=== PATIENT | female | born 1940 | race Caucasian/White ===

== ENCOUNTER 2017-03-19 07:47 | Outpatient (CLI) | payer MEDICARE ==
[2017-03-19] MEDS ORDERED: ISOVUE-370 76%-LOCM 1 ML ONE (10:02)
--- NOTE | 2017-03-19 11:30 | CT ---
CTA OF THE ABDOMEN AND PELVIS WITH BILATERAL LOWER EXTREMITY RUNOFF: INDICATION: A 76-year-old female with a history of abdominal aortic aneurysm and iodine allergy. The patient rec eived premedication for this evaluation. The patient also has a history of hysterectomy and open-hea rt surgery. COMPARISON: None. TECHNIQUE: Multiple CTA images were obtained of the abdomen and pelvis utilizing IV contrast and 3D reformatted imaging. FINDINGS: ABDOMEN: Visualized aspects of the liver, spleen, pancreas, and right adrenal gland appear within normal limit s. There is a 1 cm nodule within the left adrenal body that cannot be further characterized on this current study. There is a tiny 1-2 mm nonobstructing calculus within the left mid kidney. There is a 6 mm nonobstru cting calculus within the inferior pole of the left kidney. There are small hypodensities within bot h kidneys that are too small to characterize but statistically are likely reflective of cysts. No pathologically enlarged lymph nodes are evident. No free fluid is evident. PELVIS: There is a mild amount of retained stool within the colon. The uterus is surgically absent. Both ov willard are present. There is a 3.6 cm fluid density mass lesion involving the left adnexa on image 86 of series 3. The bladder, rectum, and perirectal soft tissues are unremarkable. There are a few scattered diverti cular involving the sigmoid colon. Small bowel is of normal caliber. No free fluid is evident. OSSEOUS STRUCTURES: There is prominent levoscoliosis of the lumbar spine. There is a dorsal column stimulator overlying the right posterior iliac crest with stimulator leads projecting beyond the field of view for the cur rent study. There is multilevel Modic end plate degenerative changes of the lumbar spine. Scoliosis lends itself to a high degree of tortuosity of the abdominal aorta. VASCULATURE: The suprarenal abdominal aorta measures 2.3 cm in its greatest AP dimension. The abdominal aorta at the level of the renal artery measures 2.2 cm. 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 There is some ectasia of the infrarenal abd ominal aorta measuring up to 2.1 cm. No sharif aneurysmal dilatation is noted. The right common maliha c artery is mildly aneurysmal measuring 1.6 cm. The left common iliac artery measures 1.3 cm. There is moderate vascular calcification involving the abdominal aorta and pelvic vasculature. The celiac and SMA are widely patent. There are single renal arteries bilaterally that are widely pa tent. There is some mild atherosclerotic narrowing involving the origin of the JM. The right external iliac artery is widely patent. The right common femoral artery is widely patent. The common femoral bifurcation is widely patent. The profunda femoral artery is widely patent. The superficial femoral artery demonstrates some mild atherosclerotic irregularity particularly distally near the adductor hiatus without hemodynamically significant stenosis. The right popliteal artery i s widely patent. The trifurcation is patent. There is 3-vessel runoff to the level of the ankle. The left external iliac artery is widely patent. The left common femoral artery is widely patent. T he left common femoral bifurcation is patent. The profunda femoral artery is patent. There is some mild atherosclerotic irregularity involving the left superficial femoral artery. There is a fluid de nsity mass seen within the subcutaneous tissues of the left thigh medially measuring 3.3 cm adjacent to an area of scarring. This may be related to a prior region of saphenous vein graft due to the pat ient's heart surgery. This likely reflects a small lymphocele. The left popliteal artery is widely patent. The trifurcation is widely patent. There is 3-vessel runoff to the level of the ankle. IMPRESSION: 1. Mild ectasia of the suprarenal and infrarenal abdominal aorta without evidence of sharif aneurysm. There is moderate to severe atherosclerotic disease of the abdominopelvic vasculature. 2. There is mild narrowing involving the origin of the inferior mesenteric artery. 3. There is mild atherosclerotic irregularity involving the distal right superficial femoral artery without hemodynamically significant stenosis. Mild irregularity is also present involving the left s uperficial femoral artery without hemodynamically significant stenosis. 4. The celiac, SMA, and renal arteries are widely patent. 5. A 3.6 cm fluid density mass lesion involving the left adnexa may reflect a serous inclusion cyst in a patient of this age. Further evaluation with a pelvic ultrasound is recommended for additional characterization. 6. Probable lymphocele within the subcutaneous tissues near the saphenous vein harvest site of the l eft thigh. 7. Postsurgical change of a hysterectomy. 8. Bilateral renal cysts and left-sided nephrolithiasis. 9. Severe levoscoliosis of the lumbar spine with severe multilevel spondylosis. POS: CALVIN
== END 2017-03-19 07:48 | disposition home or self-care (01) ==
LOC: CT 07:47
PROVIDERS: ATTEND Family Medicine
DX: I71.4 Abdominal aortic aneurysm, without rupture (principal); I77.811 Abdominal aortic ectasia; Z90.710 Acquired absence of both cervix and uterus; M41.86 Other forms of scoliosis, lumbar region
CPT/HCPCS: 75635

== ENCOUNTER 2018-02-09 07:31 | Outpatient (CLI) | payer MEDICARE ==
[2018-02-09 07:56] LABS: ALT (SGPT) 33 U/L (8-55); AST (SGOT) 35 U/L (5-34); Albumin 3.9 g/dL (3.4-4.8); Alkaline Phosphatase 80 U/L (40-150); Anion Gap 12 mmol/L (10-20); BUN (Urea Nitrogen) 16 mg/dL (9.8-20.1); Bilirubin, Total 0.6 mg/dL (0.2-1.2); Calc. Creatinine Clearance 0 mL/min (70-130); Calcium 9.7 mg/dL (7.8-10.44); Carbon Dioxide 26 mmol/L (23-31); Cardiac Risk 3.1 (Less than 4.5); Chloride 105 mmol/L (98-107); Cholesterol 114 mg/dl (< 200 Desired); Estimated GFR-MDRD 67; Glucose 111 mg/dL (83-110); HDL Cholesterol 37 mg/dL (>60 Neg Risk); LDL Cholesterol, Calculated 44 mg/dL; Potassium 4.6 mmol/L (3.5-5.1); Protein, Total 6.9 g/dL (6.0-8.3); Sodium 138 mmol/L (136-145); Triglycerides 167 mg/dL (Less than 150)
== END 2018-02-09 07:32 | disposition home or self-care (01) ==
LOC: CP 07:31
PROVIDERS: ATTEND Family Medicine
DX: J98.01 Acute bronchospasm (principal)
CPT/HCPCS: 36415; 80053; 80061; 94060; 94727; 94729

== ENCOUNTER 2019-11-09 21:03 | Inpatient (IN) | payer MEDICARE, OTHER ==
--- NOTE | 2019-11-09 22:40 | ULT ---
Exam:Leftlower extremity venous ultrasound with Doppler HISTORY: Leftlower extremity swelling COMPARISON: None TECHNIQUE: Grayscale, color flow, Doppler imaging and spectral wave muscle performed left lower extre mity venous system FINDINGS: There is compressibility, presence of flow and augmentation in the common femoral vein, femoral vein and popliteal vein. There is flow in the posterior tibial vein. There is flow in the greater saphenous vein and profunda femoral vein Incidentals: Enlarged left inguinal lymph node with preserved fatty hilum measuring 2 cm in maximum d imension The medial thigh, there is a well-circumscribed anechoic focus with through transmission measuring 2. 6 x 2.4 x 3.4 cm. A soft tissue cyst is suspected. Wall is slightly thickened. IMPRESSION: 1. No thrombus in the left lower extremity deep venous system. 2. Incidentals as above.
[2019-11-10] MEDS ORDERED: Ondansetron ODT 4 MG TAB SL PRN (01:05)
[2019-11-10] MEDS ORDERED: Ondansetron PF 4 MG/2 ML Vial IVP PRN ×2 (01:05→02:15)
[2019-11-10] MEDS ORDERED: Acetaminophen 325 MG TAB PO PRN (01:05)
[2019-11-10 01:28] VITALS: BMI 31.8
[2019-11-10] MEDS ORDERED: Guaifenesin DM 100-10/5 ML UDCUP PO PRN (02:15)
[2019-11-10] MEDS ORDERED: cloNIDine 0.1 MG TAB PO PRN (02:15)
[2019-11-10] MEDS ORDERED: Promethazine HCl 12.5 MG in Sodium Chloride 0.9% 50 ML IVPB PRN (02:15)
[2019-11-10] MEDS ORDERED: Morphine 2 MG/ML VIAL SLOW IVP PRN (02:15)
[2019-11-10] MEDS ORDERED: Labetalol HCl 100 MG/20 ML VIAL SLOW IVP PRN (02:15)
[2019-11-10] MEDS ORDERED: HYDROcodone/Acetaminophen 5/325 mg Tablet PO PRN (02:15)
[2019-11-10] MEDS ORDERED: hydrALAZINE 20 MG/ML VIAL SLOW IVP PRN (02:15)
[2019-11-10] MEDS ORDERED: Bisacodyl 10 MG SUPP PR PRN (02:16)
--- NOTE | 2019-11-10 03:31 | PDOC.HHP ---
Hospitalist HPI - History of Present Illness L thigh pain, redness, swelling History of Present Illness: Patient is a 79 year old female with PMH CAD, macular degeneration, OAB, HLD, chronic back pain, scoliosis, HTN who presents as [place] ED transfer for L thigh erythema and swelling. started several days ago, painful starting earlier today. in L thigh extending down to leg and ankle, no tender joints, no groin extension. no previous episodes, no portal of entry, has chronic cough and abnormal PFTs and CXR concerning for COPD. smokes 1 ppd. DV duplex negative for clots. In [place], UA w/ trace LE 0-3 WBC, CBC w/ WBC 14. CXR w/ hyperinflation and COPD. Patient transferred for cellulitis treatment. Hospitalist ROS - Review of Systems Constitutional: denies: fever, chills, sweats, weakness, malaise, other Eyes: denies: pain, vision change, conjunctivae inflammation, eyelid inflammation, redness, other ENT: denies: ear pain, ear discharge, nose pain, nose discharge, nose congestion , mouth pain, mouth swelling, throat pain, throat swelling, other Respiratory: denies: cough, dry, shortness of breath, hemoptysis, SOB with excertion, pleuritic pain, sputum, wheezing, other Cardiovascular: denies: chest pain, palpitations, orthopnea, paroxysmal noc. dyspnea, edema, light headedness, other Gastrointestinal: denies: nausea, vomiting, abdominal pain, diarrhea, constipation, melena, hematochezia, other Genitourinary: denies: dysuria, frequency, incontinence, hematuria, retention, other Musculoskeletal: denies: neck pain, shoulder pain, arm pain, back pain, hand pain, leg pain, foot pain, other Skin: reports: rash, lesions, other (per HPI) Neurological: denies: weakness, numbness, incoordination, change in speech, confusion, seizures, other All other systems reviewed; all pertinent +/- noted in HPI/Subj - Medication Medications: reviewed, see ED records and MAR/home med list in EMR Hospitalist History - Past Medical History Other Medical History: CAD, macular degeneration, OAB, HLD, chronic back pain, scoliosis, HTN - Past Surgical History Other Surgical History: catarracts hysterectomy spinal cord stimulator CABG 3v - Family History Family History: reports: no pertinent history - Social History Smoking Status: Current every day smoker (1 ppd) Alcohol: reports: None Drugs: reports: none - Exam General Appearance: NAD, awake alert Eye: PERRL, anicteric sclera ENT: normocephalic atraumatic, no oropharyngeal lesions, moist mucosa Neck: supple, symmetric, no JVD, no thyromegaly, no lymphadenopathy, no carotid bruit Heart: RRR, no murmur, no gallops, no rubs, normal peripheral pulses Respiratory: CTAB, no wheezes, no rales, no ronchi, normal chest expansion, no tachypnea, normal percussion Gastrointestinal: soft, non-tender, non-distended, normal bowel sounds, no palpable masses, no hepatomegaly, no splenomegaly, no bruit Extremities: no cyanosis, no clubbing, no edema Skin: normal turgor, no lesions Skin - other findings: rash on inner thigh LLE, erythema/edema no induration or firmness Neurological: cranial nerve grossly intact, normal sensation to touch, no weakness, no focal deficits, no new deficit Musculoskeletal: normal tone, normal strength, no muscle wasting Psychiatric: normal affect, normal behavior, A&O x 3 Hospitalist Results - Labs Lab results: outside records reviewed, see HPI for pertinent positives Hospitalist H&P A/P - Plan Plan: Patient is a 79 year old female with PMH CAD, macular degeneration, OAB, HLD, chronic back pain, scoliosis, HTN who presents as [place] ED transfer for L thigh erythema and swelling. # LLE cellulitis - covid screen ordered, follow up results - blood cultures drawn [place], follow up results there - line around thich rash demarkated, no groin or pelvic extension. no obvious portal of entry - continue vancomycin - US extremity without DVT # history of CAD/CABG - resume home cardiac meds and ASA # HLD - resumes home meds # HTN - PRN medications ordered, resume home meds # chronic back pain - noted, pain meds per normal comfort measures # obstructive lung disease - previous abnormal PFTs, PRN duonebs, no active wheezing # tobacco abuse - nicotine patch DVT ppx/ GI ppx full code
[2019-11-10] MEDS ORDERED: Nicotine 14 MG PATCH TD SCH (04:00)
[2019-11-10 05:29] LABS: #Basophils 0.1 thou/uL (0.0-0.2); #Eosinphils 0.1 thou/uL (0.0-0.7); #Lymphocytes 1.8 thou/uL (1.20-3.40); #Monocytes 1.2 thou/uL (0.11-0.59); #Neutrophils 10.5 thou/uL (1.40-6.50); %Basophils 0.4 % (0.0-1.0); %Eosinophils 0.7 % (0.0-10.0); %Lymphocytes 13.1 % (21.0-51.0); %Neutrophils 76.8 % (42.0-75.0); Hemoglobin 14.1 g/dL (12.0-16.0); Mean Corpuscular HGB CONC 31.8 g/dL (32.0-36.0); Mean Corpuscular Hemoglobin 30.2 pg (27.0-31.0); Mean Platelet Volume 8.2 fL (7.4-10.4); Platelet Count 166 thou/uL (130-400); RBC Distribution Width 11.7 % (11.5-14.5); Red Blood Cell (RBC) Count 4.68 mill/uL (4.20-5.40); White Blood Cell (WBC) Count 13.6 thou/uL (4.8-10.8)
[2019-11-10 05:57] LABS: Anion Gap 12 mmol/L (10-20); BUN (Urea Nitrogen) 12 mg/dL (9.8-20.1); Calc. Creatinine Clearance 85 mL/min (70-130); Calcium 8.4 mg/dL (7.8-10.44); Carbon Dioxide 17 mmol/L (23-31); Chloride 107 mmol/L (98-107); Estimated GFR-MDRD 82; Glucose 97 mg/dL (83-110); Potassium 4.4 mmol/L (3.5-5.1); Sodium 132 mmol/L (136-145)
[2019-11-10] MEDS: Aspirin 325 mg Enteric Coated Tablet PO SCH (08:46)
[2019-11-10] MEDS: Vancomycin HCl 1.25 GM in Sodium Chloride 0.9% 250 ML 250 ML IVPB SCH (08:46)
[2019-11-10] MEDS: Famotidine 20 MG TAB PO SCH (08:46)
[2019-11-10] MEDS: Atorvastatin Calcium 20 MG TAB PO SCH (08:47)
[2019-11-10] MEDS: Enoxaparin Sodium 40 MG/0.4 ML SYRINGE SC SCH (08:48)
[2019-11-10] MEDS: Nicotine 14 MG PATCH TD SCH (08:49)
[2019-11-10] MEDS: Polyethylene Glycol 3350 17 GM Packet PO SCH (08:49)
[2019-11-10] MEDS: Cefepime 2 GM in Sodium Chloride 0.9% 100 ML IVPB SCH ×2 (08:50→20:42)
[2019-11-10] MEDS ORDERED: Vancomycin 1 GM in Premix Bag 1 BAG IVPB SCH (09:00)
[2019-11-10] MEDS ORDERED: Cefepime 2 GM in Sodium Chloride 0.9% 100 ML IVPB SCH (10:00)
[2019-11-10 14:14] LABS: SARS-CoV-2 MS2 Positive; SARS-CoV-2 N Gene Negative; SARS-CoV-2 S Gene Negative; SARS-CoV-2 by NAA Not Detected (NotDetected); SARS-CoV-2 orf1ab Negative
--- NOTE | 2019-11-10 15:39 | PDOC.EVN ---
Event Note - Event Note Event Note: Case was reviewed. Patient was seen and examined. She presented with pain in her left thigh. She has macular degeneration and cannot see the area well. Her daughter noticed it to be significantly red. She reports it is feeling slightly better already. She did have a vein harvesting in the left thigh for her bypass surgery. There is an area of erythema surrounding each of the 3 scars on her left thigh. The most proximal one is the most severe. There is an area of about 4 to 5 cm of induration and significant tenderness to palpation concerning for possible abscess. Will obtain an ultrasound and continue IV antibiotics.
[2019-11-11] MEDS: Acetaminophen 325 MG TAB PO PRN ×2 (00:12→20:31)
[2019-11-11 06:18] LABS: #Eosinphils 0.3 thou/uL (0.0-0.7); #Lymphocytes 2.2 thou/uL (1.20-3.40); #Neutrophils 7.1 thou/uL (1.40-6.50); %Basophils 0.4 % (0.0-1.0); %Eosinophils 2.8 % (0.0-10.0); %Lymphocytes 20.4 % (21.0-51.0); %Monocytes 9.3 % (0.0-10.0); %Neutrophils 67.2 % (42.0-75.0); Hemoglobin 13.8 g/dL (12.0-16.0); Mean Corpuscular HGB CONC 33.5 g/dL (32.0-36.0); Mean Corpuscular Hemoglobin 31.6 pg (27.0-31.0); Mean Corpuscular Volume 94.6 fL (78.0-98.0); Mean Platelet Volume 8.5 fL (7.4-10.4); Platelet Count 164 thou/uL (130-400); RBC Distribution Width 11.6 % (11.5-14.5); Red Blood Cell (RBC) Count 4.36 mill/uL (4.20-5.40); White Blood Cell (WBC) Count 10.6 thou/uL (4.8-10.8)
[2019-11-11 06:39] LABS: Anion Gap 12 mmol/L (10-20); BUN (Urea Nitrogen) 10 mg/dL (9.8-20.1); Calc. Creatinine Clearance 84 mL/min (70-130); Calcium 8.6 mg/dL (7.8-10.44); Carbon Dioxide 23 mmol/L (23-31); Chloride 105 mmol/L (98-107); Estimated GFR-MDRD 81; Glucose 105 mg/dL (83-110); Potassium 3.8 mmol/L (3.5-5.1); Sodium 136 mmol/L (136-145)
[2019-11-11] MEDS: Cefepime 2 GM in Sodium Chloride 0.9% 100 ML IVPB SCH ×2 (08:45→20:36)
[2019-11-11] MEDS: Polyethylene Glycol 3350 17 GM Packet PO SCH (08:48)
[2019-11-11] MEDS: Nicotine 14 MG PATCH TD SCH (08:48)
[2019-11-11] MEDS: Atorvastatin Calcium 20 MG TAB PO SCH (08:49)
[2019-11-11] MEDS: Aspirin 325 mg Enteric Coated Tablet PO SCH (08:49)
[2019-11-11] MEDS: Famotidine 20 MG TAB PO SCH (08:50)
[2019-11-11] MEDS: Vancomycin HCl 1.25 GM in Sodium Chloride 0.9% 250 ML 250 ML IVPB SCH (11:33)
--- NOTE | 2019-11-11 14:32 | ULT ---
Sonographic guided left thigh abscess aspiration HISTORY: Left leg abscess. FINDINGS: After explaining the procedure and answering all questions, the skin over the area of infla mmation at the medial aspect of the left thigh was prepped and draped in usual sterile fashion. Sterile technique, buffered local anesthesia, sonographic guidance, and a lateral approach were used to carefully advance a 18-gauge spinal needle into the center of the abscess. A small amount of thick yellow liquid was initially aspirated. The vigorous movement of the needle was used to aspirate a total of 4 cc thick yellow liquid. No more additional fluid was able to be aspirated. Significant pastelike material remained within the abscess cavity. Volume was decreased by approximat gabriela 50%. Patient tolerated well and was returned in unchanged condition. IMPRESSION : Technically successful CT-guided aspiration left thigh abscess. Pathology is pending.
[2019-11-11] MEDS: Enoxaparin Sodium 40 MG/0.4 ML SYRINGE SC SCH ×2 (15:45→16:05)
--- NOTE | 2019-11-11 18:49 | PDOC.HOSPP ---
- Subjective Encounter Date: 11/11/19 Subjective: Feeling okay today. No new complaints. Leg is feeling slightly better. Patient's daughter is in the room with her today and reported that the erythema had extended down to the patient's ankle and is significantly improved now. - Objective Vital Signs & Weight: Vital Signs (12 hours) Temp Pulse Resp BP Pulse Ox 11/11/19 16:00 98.9 F 77 16 146/72 H 95 11/11/19 08:52 65 11/11/19 08:00 94 L Weight Weight 180 lb 0.119 oz I&O: 11/10/19 11/11/19 11/12/19 06:59 06:59 06:59 Intake Total 150 1150 Balance 150 1150 Result Diagrams: 11/11/19 05:44 11/11/19 05:44 Hospitalist ROS - Medication Medications: Active Medications Generic Name Dose Route Start Last Admin Trade Name Freq PRN Reason Stop Dose Admin Acetaminophen 650 mg 11/10/19 02:15 11/11/19 00:12 Tylenol PO 650 mg Q4H PRN Administration Headache/Fever/Mild Pain (1-3) Aspirin 325 mg 11/10/19 09:00 11/11/19 08:49 Ecotrin PO 325 mg DAILY CHAYITO Administration Atorvastatin Calcium 20 mg 11/10/19 09:00 11/11/19 08:49 Lipitor PO 20 mg DAILY CHAYITO Administration Enoxaparin Sodium 40 mg 11/10/19 09:00 11/11/19 16:05 Lovenox SC 40 mg 0900 CHAYITO Administration Famotidine 20 mg 11/10/19 09:00 11/11/19 08:50 Pepcid PO 20 mg DAILY CHAYITO Administration Cefepime HCl 2 gm/ Sodium 100 mls @ 200 mls/hr 11/10/19 09:00 11/11/19 08:45 Chloride IVPB 100 mls Q12HR CHAYITO Administration Vancomycin HCl 1.25 gm/ Sodium 250 mls @ 166.667 mls/hr 11/10/19 08:00 11:33 Chloride IVPB 11/18/19 12:00 250 mls 0800 CHAYITO Administration Metoprolol Succinate 50 mg 11/10/19 09:00 11/11/19 08:51 Toprol Xl PO 50 mg DAILY CHAYITO Administration Nicotine 14 mg 11/10/19 09:00 11/11/19 08:48 Nicoderm Patch TD 14 mg Q24HR@0900 CHAYITO Administration Polyethylene Glycol 17 gm 11/10/19 09:00 11/11/19 08:48 Miralax PO 17 gm DAILY CHAYITO Administration - Exam General Appearance: NAD, awake alert Heart: RRR, no murmur, no gallops, no rubs, normal peripheral pulses Respiratory: CTAB, no wheezes, no rales, no ronchi, normal chest expansion, no tachypnea, normal percussion Gastrointestinal: soft, non-tender, non-distended, normal bowel sounds, no palpable masses, no hepatomegaly, no splenomegaly, no bruit Extremities: no cyanosis, no clubbing, no edema Extremities - other findings: Left proximal thigh with induration, erythema. Skin: normal turgor Neurological: cranial nerve grossly intact, normal sensation to touch, no weakness, no focal deficits, no new deficit Musculoskeletal: normal tone, normal strength, no muscle wasting Psychiatric: normal affect, normal behavior, A&O x 3 Hosp A/P (1) Cellulitis Code(s): L03.90 - CELLULITIS, UNSPECIFIED Status: Acute (2) Seroma Code(s): IXZ7962 - Status: Acute (3) Macular degeneration Code(s): H35.30 - UNSPECIFIED MACULAR DEGENERATION Status: Acute (4) Coronary artery disease Code(s): I25.10 - ATHSCL HEART DISEASE OF [place] CORONARY ARTERY W/O ANG PCTRS Status: Acute - Plan Plan was for aspiration of the seroma today. Discussed with radiology. This had been seen previously, therefore there was no need to reimage it however, it was amenable to potential needle aspiration. That was planned for today. Continue antibiotics hopefully will be able to get a culture to follow-up on. The peripheral cellulitis appears to be improving and it is now narrowing down around the indurated area at the proximal vein harvest scar.
[2019-11-11] MEDS: Trospium 20 MG TAB PO SCH (20:31)
[2019-11-12 05:29] LABS: #Basophils 0.1 thou/uL (0.0-0.2); #Eosinphils 0.3 thou/uL (0.0-0.7); #Lymphocytes 2.2 thou/uL (1.20-3.40); #Monocytes 1.1 thou/uL (0.11-0.59); #Neutrophils 6.1 thou/uL (1.40-6.50); %Basophils 0.7 % (0.0-1.0); %Eosinophils 3.4 % (0.0-10.0); %Lymphocytes 22.8 % (21.0-51.0); %Monocytes 10.7 % (0.0-10.0); %Neutrophils 62.4 % (42.0-75.0); Hemoglobin 13.4 g/dL (12.0-16.0); Mean Corpuscular HGB CONC 32.3 g/dL (32.0-36.0); Mean Corpuscular Hemoglobin 30.7 pg (27.0-31.0); Mean Corpuscular Volume 95.2 fL (78.0-98.0); Mean Platelet Volume 8.3 fL (7.4-10.4); Platelet Count 180 thou/uL (130-400); RBC Distribution Width 11.6 % (11.5-14.5); Red Blood Cell (RBC) Count 4.36 mill/uL (4.20-5.40); White Blood Cell (WBC) Count 9.8 thou/uL (4.8-10.8)
[2019-11-12 05:50] LABS: Anion Gap 9 mmol/L (10-20); BUN (Urea Nitrogen) 8 mg/dL (9.8-20.1); Calc. Creatinine Clearance 82 mL/min (70-130); Calcium 8.1 mg/dL (7.8-10.44); Carbon Dioxide 25 mmol/L (23-31); Chloride 106 mmol/L (98-107); Estimated GFR-MDRD 78; Glucose 112 mg/dL (83-110); Potassium 3.6 mmol/L (3.5-5.1); Sodium 136 mmol/L (136-145)
[2019-11-12 07:49] LABS: Vancomycin, Trough 6.4 ug/mL
[2019-11-12] MEDS: Vancomycin HCl 1.25 GM in Sodium Chloride 0.9% 250 ML 250 ML IVPB SCH ×2 (07:58→20:03)
[2019-11-12] MEDS: Aspirin 325 mg Enteric Coated Tablet PO SCH (08:00)
[2019-11-12] MEDS: Famotidine 20 MG TAB PO SCH (08:00)
[2019-11-12] MEDS: Enoxaparin Sodium 40 MG/0.4 ML SYRINGE SC SCH (08:00)
[2019-11-12] MEDS: Nicotine 14 MG PATCH TD SCH (08:00)
[2019-11-12] MEDS: Atorvastatin Calcium 20 MG TAB PO SCH (08:01)
[2019-11-12] MEDS: Polyethylene Glycol 3350 17 GM Packet PO SCH (08:02)
[2019-11-12] MEDS: Cefepime 2 GM in Sodium Chloride 0.9% 100 ML IVPB SCH ×2 (08:16→22:31)
[2019-11-12] MEDS: Trospium 20 MG TAB PO SCH ×2 (09:35→20:03)
--- NOTE | 2019-11-12 11:07 | PDOC.HOSPP ---
- Subjective Encounter Date: 11/12/19 Subjective: Feels well. She has no complaints. Her leg is still sore and feels hot to her. - Objective Vital Signs & Weight: Vital Signs (12 hours) Temp Pulse Resp BP Pulse Ox 11/12/19 09:00 98.6 F 98 16 165/78 H 98 11/12/19 03:10 98.8 F 69 18 138/70 94 L Weight Weight 180 lb 0.119 oz I&O: 11/11/19 11/12/19 11/13/19 06:59 06:59 06:59 Intake Total 1150 Balance 1150 Result Diagrams: 11/12/19 05:04 11/12/19 05:04 Hospitalist ROS - Medication Medications: Active Medications Generic Name Dose Route Start Last Admin Trade Name Freq PRN Reason Stop Dose Admin Acetaminophen 650 mg 11/10/19 02:15 11/11/19 20:31 Tylenol PO 650 mg Q4H PRN Administration Headache/Fever/Mild Pain (1-3) Aspirin 325 mg 11/10/19 09:00 11/12/19 08:00 Ecotrin PO 325 mg DAILY CHAYITO Administration Atorvastatin Calcium 20 mg 11/10/19 09:00 11/12/19 08:01 Lipitor PO 20 mg DAILY CHAYITO Administration Enoxaparin Sodium 40 mg 11/10/19 09:00 11/12/19 08:00 Lovenox SC 40 mg 0900 CHAYITO Administration Famotidine 20 mg 11/10/19 09:00 11/12/19 08:00 Pepcid PO 20 mg DAILY CHAYITO Administration Cefepime HCl 2 gm/ Sodium 100 mls @ 200 mls/hr 11/10/19 09:00 11/12/19 08:16 Chloride IVPB 100 mls Q12HR CHAYITO Administration Vancomycin HCl 1.25 gm/ Sodium 250 mls @ 166.667 mls/hr 11/10/19 08:00 07:58 Chloride IVPB 11/18/19 12:00 250 mls 0800 CHAYITO Administration Metoprolol Succinate 50 mg 11/10/19 09:00 11/12/19 08:01 Toprol Xl PO 50 mg DAILY CHAYITO Administration Nicotine 14 mg 11/10/19 09:00 11/12/19 08:00 Nicoderm Patch TD 14 mg Q24HR@0900 CHAYITO Administration Polyethylene Glycol 17 gm 11/10/19 09:00 11/12/19 08:02 Miralax PO 17 gm DAILY CHAYITO Administration Trospium 20 mg 11/11/19 21:00 11/12/19 09:35 Trospium PO 20 mg BID CHAYITO Administration - Exam General Appearance: NAD, awake alert Extremities - other findings: Proximal L LE with indurated area approximately 6 cm with TTP and calor. Skin - other findings: Cellulitic changes have lessened and decreased. Hosp A/P (1) Cellulitis Code(s): L03.90 - CELLULITIS, UNSPECIFIED Status: Acute (2) Seroma Code(s): DSF5132 - Status: Acute (3) Macular degeneration Code(s): H35.30 - UNSPECIFIED MACULAR DEGENERATION Status: Acute (4) Coronary artery disease Code(s): I25.10 - ATHSCL HEART DISEASE OF [place] CORONARY ARTERY W/O ANG PCTRS Status: Acute - Plan Patient had ultrasound-guided aspiration of the seroma of the proximal thigh yesterday. Approximately 4 cc of thick fluid with particulate were obtained. The remaining fluid could not be aspirated. It was approximated that there was about 4 cc residual. Apparently the fluid was sent to the lab but may have been treated with a preservative that will make culture impossible. She does seem to be improving significantly with the current antibiotic regimen. Current question is whether the remaining fluid needs to be liberated or whether we can consider conversion to a trial of oral antibiotics. Will consult ID for further input. Case was discussed with Dr. Berman.
[2019-11-12] MEDS ORDERED: Vancomycin HCl 1.25 GM in Sodium Chloride 0.9% 250 ML 250 ML IVPB SCH (20:00)
[2019-11-12] MEDS: Acetaminophen 325 MG TAB PO PRN (20:02)
--- NOTE | 2019-11-12 23:15 | CON ---
DATE OF CONSULTATION: 11/12/2019 REASON FOR CONSULTATION: Abscess, left thigh. HISTORY OF PRESENT ILLNESS: A 79-year-old with history of coronary artery disease with bypass graft surgery 5 years ago, hyperlipidemia and some lower back issues who developed cellulitis of left leg and abscess in the left medial thigh. She was admitted and was aspirated, was given cefepime and vancomycin with some improvement, particularly in relationship to inflammatory process in the leg but after aspiration, the fluid obtained was kind of thick light yellow white and unfortunately, the sample was not properly submitted to microbiology and I am trying to get them to run a Gram stain at least in the sample. In the meantime, the size of the indurated area in the medial thigh keeps enlarging and it is quite tender. No headaches. No shortness of breath, cough, or sputum production. No abdominal pain or diarrhea. No genitourinary symptoms. No joint symptoms other than osteoarthritis symptoms. No neurological symptoms. PAST MEDICAL HISTORY: Macular degeneration, urinary incontinence, coronary artery disease, bypass graft surgery, low back pain, hypertension, cataracts, hysterectomy, spinal cord stimulator. ALLERGIES: IODINE AND PENICILLIN. ACTUALLY NO TRUE ALLERGY TO PENICILLIN WITH JUST NAUSEA. SULFA DRUG IS THE TRUE ALLERGY. MEDICATIONS: 1. Aspirin. 2. Lipitor. 3. Dulcolax. 4. Catapres. 5. Lovenox. 6. Flint. 7. Normodyne. 8. Morphine. 9. Vancomycin. 10. Cefepime. FAMILY HISTORY: Noncontributory. SOCIAL HISTORY: She does not smoke. Lives in [place]. PHYSICAL EXAMINATION: GENERAL AND VITAL SIGNS: She has been afebrile and O2 saturations are good 98% on room air, BP 160/70. Awake, alert, oriented. HEENT: Ocular movements conjugate. Oral cavity normal. NECK: Supple. LUNGS: Symmetric. Clear breath sounds. HEART: S1 and S2. Regular rate. No S3 or S4. ABDOMEN: Soft. Not distended. MUSCULOSKELETAL: The battery for the spinal cord stimulator is not tender. There is an indurated area quite larger to at least 12 cm in diameter, round shaped on the medial aspect of the left thigh subcutaneous tissue. [id number] redness around the area. The remainder of the erythema in the lower extremity has resolved. She has 1+ pulses in dorsalis pedis. Plantar responses are flexor. Moves extremities equally, otherwise with some limitations from inflammatory process. Cognitive function appears to be intact. LABORATORY DATA: Sodium 136, creatinine 0.72, white cell count 9.8, hemoglobin 13, platelets 180 with a normal differential. COVID not detected. Two blood cultures negative. Urine culture negative. Actually less than 10,000 CFUs. IMAGING STUDIES: There is a vascular ultrasound from November 08, which showed no DVT. There is enlarged left inguinal lymph node and there is a cyst aspiration. Ultrasound from yesterday procedure which showed center of abscess with yellow liquid, 4 mL of thick yellow fluid obtained. The volume decreased about 50%. ASSESSMENT AND PLAN: Coronary artery disease, hypertension, and prior saphenectomy donor site, now with inflammatory process with abscess. The patient had cellulitis in lower extremities which has improved, but now this abscess needs to be surgically debrided. Staphylococcus aureus including MRSA the most likely culprit is gram-negative rods, not ruled out. Streptococci, sometimes possible but Staph aureus by far the more likely organism. Fungal mycobacterial pathogens are less likely. We will consult Dr. Coates to evaluate the patient. Continue regimen as currently. Eventual transition to antimicrobials probably oral regimen for discharge planning after procedure. I discussed with the patient that she may have been bacteremic at least transiently and sometimes Staphylococcus bacteremia may lead to relapse of an inflammatory process in the distant site in her case, for example, the lower back, spinal cord stimulator battery would be risk areas. Job ID: [id number]
[2019-11-13 07:33] LABS: Vancomycin, Trough 14.2 ug/mL
[2019-11-13] MEDS: Famotidine 20 MG TAB PO SCH (08:44)
[2019-11-13] MEDS: Atorvastatin Calcium 20 MG TAB PO SCH (08:44)
[2019-11-13] MEDS: Aspirin 325 mg Enteric Coated Tablet PO SCH (08:44)
[2019-11-13] MEDS: Cefepime 2 GM in Sodium Chloride 0.9% 100 ML IVPB SCH ×2 (08:46→22:41)
[2019-11-13] MEDS: Polyethylene Glycol 3350 17 GM Packet PO SCH (08:51)
[2019-11-13] MEDS: Nicotine 14 MG PATCH TD SCH (08:52)
[2019-11-13] MEDS: Vancomycin HCl 1.25 GM in Sodium Chloride 0.9% 250 ML 250 ML IVPB SCH ×2 (09:33→20:37)
[2019-11-13] MEDS ORDERED: Lidocaine 1% PF 5 ML VIAL ONE (09:34)
[2019-11-13] MEDS ORDERED: Ondansetron PF 4 MG/2 ML Vial ONE (09:34)
[2019-11-13] MEDS ORDERED: PROPOFOL 200 MG/20 ML VIAL ONE (09:34)
[2019-11-13] MEDS ORDERED: Lidocaine 1% w/Epinephrine 1:100K 20 ML VIAL ONE (10:36)
[2019-11-13] MEDS ORDERED: Fentanyl 100 MCG/2 ML VIAL ONE (10:36)
[2019-11-13] MEDS ORDERED: Bupivacaine 0.25% HCL 30 ML VIAL ONE (10:36)
[2019-11-13] MEDS ORDERED: traMADol HCl 50 MG TAB PO PRN (11:33)
[2019-11-13] MEDS ORDERED: HYDROcodone/Acetaminophen 7.5/325 mg Tablet PO PRN (11:33)
--- NOTE | 2019-11-13 11:45 | CON ---
DATE OF CONSULTATION: 11/13/2019 CHIEF COMPLAINT: Left thigh abscess. HISTORY OF PRESENT ILLNESS: This is a 79-year-old female, admitted to the Hospitalist Service with cellulitis to her left thigh, it was more diffuse and red. Now, she has developed more of an area of induration, likely purulence. She had aspiration of this, but it was some thick particulate purulent appearing material, so there was no significant decrease in size came by that. She now notes more pain in the area. No fevers or chills. PAST MEDICAL HISTORY: Includes macular degeneration, hypertension, chronic back pain, scoliosis, CAD. SURGICAL HISTORY: Cataracts, hysterectomy, spinal cord stimulator, CABG. MEDICATIONS: See list. ALLERGIES: IODINE, PENICILLIN, AND SULFA. SOCIAL HISTORY: She smokes one pack a day. No alcohol. No other drugs. REVIEW OF SYSTEMS: Ten-system review of systems is otherwise negative unless described above. PHYSICAL EXAMINATION: HEENT: Sclerae are anicteric. Oropharynx is clear. NECK: No lymphadenopathy. CHEST: Clear. HEART: Regular rate. ABDOMEN: Soft, nontender. EXTREMITIES: Examination of the left thigh reveals there to be an area of induration and hardness, 10 x 15 cm. No fluctuance, bulla, or crepitance. ASSESSMENT: Left thigh abscess. PLAN: Incision and drainage in the operating room. Risks, benefits, and alternatives discussed. She gives consent. We will do this today. Job ID: [id number]
[2019-11-13] MEDS: Trospium 20 MG TAB PO SCH ×2 (12:04→20:38)
--- NOTE | 2019-11-13 12:32 | OP ---
DATE OF PROCEDURE: 11/13/2019 PREOPERATIVE DIAGNOSIS: Left thigh deep abscess. POSTOPERATIVE DIAGNOSIS: Left thigh deep abscess. PROCEDURE PERFORMED: I and D of deep left thigh abscess. ANESTHESIA: General. ESTIMATED BLOOD LOSS: Minimal. COMPLICATIONS: None. FINDINGS: Cultures taken for anaerobes and aerobes. DESCRIPTION OF PROCEDURE: The patient was taken to the operating room and laid supine on the operating room table. After general anesthetic was obtained, left thigh was prepped and draped in a sterile fashion. Elliptical incision was used to ellipse out skin full thickness into the abscess cavity. Cultures were taken from the wound. All loculations broken out. No debridement of tissue was performed. The wound was irrigated and packed using wet-to-dry plain packing. Sterile dressings were placed. The patient was sent to Recovery in stable condition. All instrument counts, needle counts, and lap counts were correct. Job ID: [id number]
[2019-11-13] MEDS: Acetaminophen 325 MG TAB PO PRN (15:41)
--- NOTE | 2019-11-13 15:41 | PRG ---
DATE OF SERVICE: 11/13/2019 SUBJECTIVE: The patient had surgical debridement by Dr. Coates. He took her to the OR and ellipsed out the abscessed area, broke up all the areas of loculation, not clear if cultures were submitted. She is feeling okay now. No abdominal pain. Moderate pain at the site and she is afebrile. Other vital signs are not remarkable. She is saturating at 94 on 2 L. Lungs are clear. S1 and S2 regular rate. Abdomen is soft, not distended. The orders show culture submitted, so we are going to be waiting on those to hopefully switch her to oral antimicrobial therapy for discharge planning. ASSESSMENT AND DISCUSSION: Coronary artery disease, hypertension, saphenectomy donor site, inflammatory process with abscess, status post surgical debridement. Awaiting on culture results and then hopefully switch to oral antimicrobial therapy for discharge planning. Job ID: [id number]
[2019-11-13] MEDS: Bisacodyl 5 MG TAB PO PRN (15:47)
--- NOTE | 2019-11-13 17:25 | PDOC.HOSPP ---
- Subjective Encounter Date: 11/13/19 Subjective: Feeling ok. No complaints. Tolerated the surgery well. - Objective Vital Signs & Weight: Vital Signs (12 hours) Temp Pulse Resp BP BP Pulse Ox 11/13/19 12:12 97.9 F 88 20 164/79 H 94 L 11/13/19 07:11 98.2 F 73 18 147/67 H 93 L Weight Weight 180 lb 0.119 oz I&O: 11/12/19 11/13/19 11/14/19 06:59 06:59 06:59 Intake Total 830 Balance 830 Result Diagrams: 11/12/19 05:04 11/12/19 05:04 Hospitalist ROS - Medication Medications: Active Medications Generic Name Dose Route Start Last Admin Trade Name Freq PRN Reason Stop Dose Admin Acetaminophen 650 mg 11/10/19 02:15 11/13/19 15:41 Tylenol PO 650 mg Q4H PRN Administration Headache/Fever/Mild Pain (1-3) Aspirin 325 mg 11/10/19 09:00 11/13/19 08:44 Ecotrin PO 325 mg DAILY CHAYITO Administration Atorvastatin Calcium 20 mg 11/10/19 09:00 11/13/19 08:44 Lipitor PO 20 mg DAILY CHAYITO Administration Bisacodyl 10 mg 11/10/19 02:16 11/13/19 15:47 Dulcolax PO 10 mg DAILYPRN PRN Administration Constipation Famotidine 20 mg 11/10/19 09:00 11/13/19 08:44 Pepcid PO 20 mg DAILY CHAYITO Administration Cefepime HCl 2 gm/ Sodium 100 mls @ 200 mls/hr 11/10/19 09:00 11/13/19 08:46 Chloride IVPB 100 mls Q12HR CHAYITO Administration Vancomycin HCl 1.25 gm/ Sodium 250 mls @ 166.667 mls/hr 11/12/19 20:00 09:33 Chloride IVPB 250 mls 08,1999 CHAYITO Administration Metoprolol Succinate 50 mg 11/10/19 09:00 11/13/19 06:30 Toprol Xl PO 50 mg DAILY CHAYITO Administration Nicotine 14 mg 11/10/19 09:00 11/13/19 08:52 Nicoderm Patch TD 14 mg Q24HR@0900 CHAYITO Administration Polyethylene Glycol 17 gm 11/10/19 09:00 11/13/19 08:51 Miralax PO Not Given DAILY CHAYITO Trospium 20 mg 11/11/19 21:00 11/13/19 12:04 Trospium PO Not Given BID CHAYITO - Exam General Appearance: NAD, awake alert Heart: RRR, no gallops, no rubs, normal peripheral pulses, II/IV Respiratory: CTAB, no wheezes, no rales, no ronchi, normal chest expansion, no tachypnea, normal percussion Gastrointestinal: soft, non-tender, non-distended, normal bowel sounds, no palpable masses, no hepatomegaly, no splenomegaly, no bruit Extremities - other findings: L prox thigh with dressing, saturated with clear/ sanginous fluid. Neurological: no focal deficits Musculoskeletal: normal tone Psychiatric: normal affect, normal behavior, A&O x 3 Hosp A/P (1) Cellulitis Code(s): L03.90 - CELLULITIS, UNSPECIFIED Status: Acute (2) Seroma Code(s): JNW1871 - Status: Acute (3) Macular degeneration Code(s): H35.30 - UNSPECIFIED MACULAR DEGENERATION Status: Acute (4) Coronary artery disease Code(s): I25.10 - ATHSCL HEART DISEASE OF [place] CORONARY ARTERY W/O ANG PCTRS Status: Acute - Plan Patient had ultrasound-guided aspiration of the seroma of the proximal thigh removing approximately 4 cc of thick fluid with particulate were obtained. The remaining fluid could not be aspirated. It was approximated that there was about 4 cc residual. Apparently the fluid was sent to the lab but may have been treated with a preservative that will make culture impossible. Today, she had deep I and D of the residual pocket. That was sent for culture. No orgs seen on GS. She does seem to be improving significantly with the current antibiotic regimen. Await Cx results. Hope to be able to convert to an oral regimen.
[2019-11-14] MEDS: Bisacodyl 5 MG TAB PO PRN (06:39)
[2019-11-14] MEDS: Acetaminophen 325 MG TAB PO PRN (06:43)
[2019-11-14] MEDS: Cefepime 2 GM in Sodium Chloride 0.9% 100 ML IVPB SCH (09:03)
[2019-11-14] MEDS: Trospium 20 MG TAB PO SCH (09:04)
[2019-11-14] MEDS: Polyethylene Glycol 3350 17 GM Packet PO SCH (09:04)
[2019-11-14] MEDS: Aspirin 325 mg Enteric Coated Tablet PO SCH (09:05)
[2019-11-14] MEDS: Famotidine 20 MG TAB PO SCH (09:05)
[2019-11-14] MEDS: Atorvastatin Calcium 20 MG TAB PO SCH (09:05)
[2019-11-14] MEDS: Nicotine 14 MG PATCH TD SCH (09:05)
[2019-11-14] MEDS: Vancomycin HCl 1.25 GM in Sodium Chloride 0.9% 250 ML 250 ML IVPB SCH (10:03)
--- NOTE | 2019-11-14 11:25 | PRG ---
DATE OF SERVICE: 11/14/2019 SUBJECTIVE: Ms. Khoury has no complaints. She had mild pain with the dressing change, but turned on pain medicine. She took Tylenol. Her wounds were dressed. ASSESSMENT: Postoperative day 1, drainage of thigh abscess. PLAN: Okay from my standpoint to be discharged home today. Return to see me in 2 weeks. Job ID: [id number]
[2019-11-14 16:05] VITALS: BP 172/83; TEMP 97.6
--- NOTE | 2019-11-15 10:54 | DIS ---
DATE OF ADMISSION: 11/10/2019 DATE OF DISCHARGE: 11/14/2019 DISCHARGE DIAGNOSES: 1. Cellulitis, left lower extremity. 2. Infected seroma, left lower extremity. 3. Coronary artery disease. 4. Macular degeneration. HISTORY OF PRESENT ILLNESS: The patient is a 79-year-old female who presented to the hospital with cellulitic changes of her left thigh down to her left ankle. HOSPITAL COURSE: The patient was admitted to the hospital, started on IV antibiotics. The patient had a prior vein harvest from that left thigh for prior bypass. She reported chronic induration near the proximal incisional scar. Ultrasound confirmed a pocket of fluid there. She subsequently had aspiration performed by Radiology, but was unable to fully aspirate the area. Subsequently, ID was consulted and the plan was to have this area surgically explored. She subsequently had that procedure performed, tolerated well. The cellulitis had substantially improved and she was felt to be stable for continued treatment with oral antibiotics per the recommendations of ID. She will be on Keflex and doxycycline. PHYSICAL EXAMINATION: VITAL SIGNS: On the day of discharge, vital signs are stable. Blood pressure is 172/83. GENERAL: She is awake and alert. HEART: Regular. LUNGS: Clear. ABDOMEN: Benign. EXTREMITIES: Left lower extremity had some mild persistent edema around the surgical dressing in the left proximal thigh. DISPOSITION: The patient is discharged to home. DIET: She is to be on a heart healthy diet. ACTIVITY: As tolerated. She will have home health to come do daily dressing changes. MEDICATIONS: Include: 1. Tylenol p.r.n. 2. Doxycycline 100 mg p.o. b.i.d. 3. Keflex 500 mg p.o. b.i.d. 4. She will continue with her multivitamin, aspirin, diltiazem, atorvastatin, metoprolol, solifenacin, and lisinopril. FOLLOWUP: She is to follow up with Dr. Bianca Machado and Dr. Baljinder Coates. She will have [facility]. She can return to hospital at anytime she needs to do so. Total time spent in discharge activities greater than 30 minutes. Job ID: [id number]
--- NOTE | 2019-11-16 10:47 | PQF ---
CLINICAL DOCUMENTATION CLARIFICATION FORM: Dear : Abner Gale MD Date / Time: __2019 Please exercise your independent, professional judgment in responding to the clarification form. Clinical indicators are provided on the bottom of this form for your review Please check appropriate box(es): [ x ] Cellulitis left lower extremities is a complication of Prior bypass [ ] Cellulitis left lower extremities is not a complication of Prior bypass [ ] Other diagnosis [ ] Unable to determine To be completed by CDI/Coding staff for physician review: Present Clinical Indicators - Signs / Symptoms / Labs Results and Location in Medical Record [ x ] Cellulitis changes of her left thigh down to her left ankle DS, 11/13, Abner Gale MD [ x ] Infected seroma, left lower extremities DS, 11/13, Abner Gale MD [ x ] Left Lower extremity had some mild persistent edema around the surgical dressing in the proximal thigh DS, 11/13, Abner Gale MD [ x ] Left thigh deep left thigh abscess OP report, 11/12, Sumit Coates MD Present Risk Factors Results and Location in Medical Record [ x ] Prior vein harvested from that left thigh for prior bypass DS, 11/13, Abner Gale MD [ x ] Hx of CAD/CABG H&P, 11/09, Andra Guidry MD Present Treatments Results and Location in Medical Record [ x ] I and D OP report, 11/12, Sumit Coates MD [ x ] Vancomycin.IV MAR, 11/09 CDS/Track Superintendent Signature: Oralia Hawk Phone #: [phone] Date/Time:_ 11/16/2019 This is a permanent part of the Medical Record [facility]
== END 2019-11-14 17:20 | disposition home or self-care (01) | DRG 863 ==
LOC: ERS 21:03 → SURG A 11-10 01:15
PROVIDERS: ADMIT Internal Medicine; ATTEND Internal Medicine
PROC: 0H9JXZZ Drainage of Left Upper Leg Skin, External Approach (ICD-10-PCS; principal; 2019-11-13)
DX: T81.41XA Infection following a procedure, superficial incisional surgical site, initial encounter (principal); L03.116 Cellulitis of left lower limb; L02.416 Cutaneous abscess of left lower limb; I97.641 Postprocedural seroma of a circulatory system organ or structure following cardiac bypass; I25.10 Atherosclerotic heart disease of native coronary artery without angina pectoris; H35.30 Unspecified macular degeneration; N32.81 Overactive bladder; F17.210 Nicotine dependence, cigarettes, uncomplicated; E78.5 Hyperlipidemia, unspecified; E78.00 Pure hypercholesterolemia, unspecified; G89.29 Other chronic pain; Z96.1 Presence of intraocular lens; Y83.2 Surgical operation with anastomosis, bypass or graft as the cause of abnormal reaction of the patient, or of later complication, without mention of misadventure at the time of the procedure; I10 Essential (primary) hypertension; Z98.42 Cataract extraction status, left eye; Z98.41 Cataract extraction status, right eye; Z95.1 Presence of aortocoronary bypass graft; Z90.710 Acquired absence of both cervix and uterus; Z88.0 Allergy status to penicillin; Z88.2 Allergy status to sulfonamides; Z88.8 Allergy status to other drugs, medicaments and biological substances
CPT/HCPCS: 36415; 76942; 80048; 80202; 85025; 87070; 87077; 87186; 87205; 87635; 88173; J0692; J1650; J2405; J2704; J3010; J3370; J3490; J7050; S0020; U0003

== ENCOUNTER 2020-06-20 08:24 | Outpatient (CLI) | payer MEDICARE | END 2020-06-20 08:25 | disposition home or self-care (01) | LOC: BICRAD 08:24 | PROVIDERS: ATTEND Internal Medicine Critical Care Medicine | DX: R06.00 Dyspnea, unspecified (principal); J98.11 Atelectasis; J98.4 Other disorders of lung | CPT/HCPCS: 71046 ==

== ENCOUNTER 2021-12-03 13:28 | Outpatient (CLI) | payer MEDICARE | END 2021-12-03 13:29 | disposition home or self-care (01) | LOC: BICCT 13:28 | PROVIDERS: ATTEND Anesthesiology | DX: M47.26 Other spondylosis with radiculopathy, lumbar region (principal); M47.815 Spondylosis without myelopathy or radiculopathy, thoracolumbar region; M47.817 Spondylosis without myelopathy or radiculopathy, lumbosacral region; M89.9 Disorder of bone, unspecified; Z98.890 Other specified postprocedural states | CPT/HCPCS: 72128; 72131 ==

== ENCOUNTER 2023-06-02 15:06 | Inpatient (IN) | payer MEDICARE ==
[2023-06-02] MEDS ORDERED: Magnesium 2 GM/50 ML BAG (IN WATER) ONE (15:38)
[2023-06-02] MEDS ORDERED: Ipratropium/Albuterol 3 ML NEB ONE (15:42)
[2023-06-02] MEDS ORDERED: Albuterol 2.5 MG (3 mL) NEB NEB PRN (16:02)
[2023-06-02] MEDS ORDERED: Acetaminophen 325 MG TAB PO PRN (16:02)
[2023-06-02] MEDS ORDERED: Acetaminophen 650 MG Suppository PR PRN (16:02)
[2023-06-02 16:12] LABS: #Monocytes 0.6 thou/uL (0.11-0.59); #Neutrophils 13.9 thou/uL (1.40-6.50); %Basophils 0.1 % (0.0-1.0); %Lymphocytes 4.2 % (21.0-51.0); %Monocytes 3.9 % (0.0-10.0); %Neutrophils 91.3 % (42.0-75.0); Hematocrit 42.6 % (36.0-47.0); Hemoglobin 14.6 g/dL (12.0-16.0); Mean Corpuscular HGB CONC 34.3 g/dL (32.0-36.0); Mean Corpuscular Hemoglobin 31.9 pg (27.0-31.0); Mean Corpuscular Volume 93.2 fl (78.0-98.0); Mean Platelet Volume 10.4 fL (7.4-10.4); Platelet Count 135 10x3/uL (130-400); RBC Distribution Width 13.2 % (11.5-14.5); Red Blood Cell (RBC) Count 4.57 mill/uL (4.20-5.40); White Blood Cell (WBC) Count 15.2 10x3/uL (4.8-10.8)
[2023-06-02] MEDS ORDERED: Sodium Chloride 0.9% 100 ML ONE (16:19)
[2023-06-02] MEDS ORDERED: cefTRIAXone (ROCEPHIN) 1 GM VIAL ONE (16:19)
[2023-06-02] MEDS ORDERED: Azithromycin 250 MG TAB ONE (16:21)
[2023-06-02 16:38] LABS: ALT (SGPT) 26 U/L (8-55); AST (SGOT) 28 U/L (5-34); Albumin 3.9 g/dL (3.4-4.8); Alkaline Phosphatase 86 U/L (40-110); Anion Gap 14 mmol/L (10-20); BUN (Urea Nitrogen) 24 mg/dL (9.8-20.1); Bilirubin, Total 0.6 mg/dL (0.2-1.2); Calc. Creatinine Clearance 0 mL/min (70-130); Calcium 9.1 mg/dL (7.8-10.44); Carbon Dioxide 25 mmol/L (23-31); Chloride 102 mmol/L (98-107); Estimated GFR 55; Glucose 149 mg/dL (83-110); Potassium 3.9 mmol/L (3.5-5.1); Protein, Total 6.9 g/dL (5.8-8.1); Sodium 137 mmol/L (136-145)
[2023-06-02 16:40] LABS: Troponin I 0.015 ng/mL (< 0.028)
[2023-06-02] MEDS: Ipratropium/Albuterol 3 ML NEB NEB SCH (18:16)
[2023-06-02 19:12] VITALS: BMI 33.1
[2023-06-02] MEDS ORDERED: Benzonatate 100 MG CAP PO PRN (20:26)
[2023-06-02] MEDS: GUAIFENESIN SF SOLN 200 MG/10 ML UDCUP PO PRN (20:54)
[2023-06-02] MEDS: Furosemide 20 MG TAB PO SCH (20:55)
[2023-06-02] MEDS ORDERED: Amiodarone 200 MG TAB PO SCH (21:00)
[2023-06-02] MEDS: methylPREDNISolone Sod Succ 40 MG VIAL IVP SCH (21:03)
[2023-06-02] MEDS: Atorvastatin Calcium 40 MG TAB PO SCH (21:14)
[2023-06-02 21:23] LABS: Troponin I 0.019 ng/mL (< 0.028)
[2023-06-03] MEDS: methylPREDNISolone Sod Succ 40 MG VIAL IVP SCH (04:05)
[2023-06-03 05:27] LABS: #Monocytes 0.6 thou/uL (0.11-0.59); #Neutrophils 12.8 thou/uL (1.40-6.50); %Basophils 0.1 % (0.0-1.0); %Lymphocytes 5.3 % (21.0-51.0); %Monocytes 4.4 % (0.0-10.0); %Neutrophils 89.8 % (42.0-75.0); Hematocrit 43.5 % (36.0-47.0); Hemoglobin 14.8 g/dL (12.0-16.0); Mean Corpuscular Hemoglobin 31.2 pg (27.0-31.0); Mean Corpuscular Volume 91.8 fl (78.0-98.0); Mean Platelet Volume 10.9 fL (7.4-10.4); Platelet Count 139 10x3/uL (130-400); RBC Distribution Width 13.2 % (11.5-14.5); Red Blood Cell (RBC) Count 4.74 mill/uL (4.20-5.40); White Blood Cell (WBC) Count 14.3 10x3/uL (4.8-10.8)
[2023-06-03 05:48] LABS: Anion Gap 14 mmol/L (10-20); BUN (Urea Nitrogen) 25 mg/dL (9.8-20.1); Calc. Creatinine Clearance 58 mL/min (70-130); Calcium 9.1 mg/dL (7.8-10.44); Carbon Dioxide 27 mmol/L (23-31); Chloride 101 mmol/L (98-107); Estimated GFR 57; Glucose 140 mg/dL (83-110); Potassium 3.9 mmol/L (3.5-5.1); Sodium 138 mmol/L (136-145)
[2023-06-03] MEDS ORDERED: Furosemide 20 MG (2 mL) VIAL SLOW IVP SCH (06:00)
[2023-06-03] MEDS: Furosemide 20 MG (2 mL) VIAL SLOW IVP SCH (06:09)
[2023-06-03] MEDS: Furosemide 40 MG (4 mL) VIAL ONE (06:13)
[2023-06-03] MEDS: Empagliflozin 10 MG TAB PO SCH (08:48)
[2023-06-03] MEDS: Ezetimibe 10 MG TAB PO SCH (08:48)
[2023-06-03] MEDS: Aspirin 81 mg Enteric Coated Tablet PO SCH (08:48)
[2023-06-03] MEDS: Spironolactone 25 MG TAB PO SCH (08:48)
[2023-06-03] MEDS: Enoxaparin 40 MG (0.4 mL) SYRINGE SC SCH (08:49)
[2023-06-03] MEDS ORDERED: Furosemide 20 MG TAB PO SCH (09:00)
[2023-06-03] MEDS: Azithromycin 500 MG in Sodium Chloride 0.9% 250 ML 250 ML IVPB SCH (16:07)
[2023-06-03] MEDS: cefTRIAXone\\ROCEPHIN 1 GM in Sodium Chloride 0.9% 100 ML IVPB SCH (16:07)
[2023-06-04] MEDS: Calcium Carbonate 500 MG ChewTAB PO PRN (04:01)
[2023-06-04] MEDS: Ondansetron ODT 4 MG TAB PO PRN (05:00)
[2023-06-04] MEDS: Furosemide 40 MG (4 mL) VIAL ONE (05:22)
[2023-06-04 05:59] LABS: #Monocytes 0.8 thou/uL (0.11-0.59); %Basophils 0.1 % (0.0-1.0); %Lymphocytes 6.7 % (21.0-51.0); %Monocytes 5.1 % (0.0-10.0); %Neutrophils 87.6 % (42.0-75.0); Hematocrit 45.8 % (36.0-47.0); Hemoglobin 15.6 g/dL (12.0-16.0); Mean Corpuscular HGB CONC 34.1 g/dL (32.0-36.0); Mean Corpuscular Hemoglobin 31.7 pg (27.0-31.0); Mean Corpuscular Volume 93.1 fl (78.0-98.0); Mean Platelet Volume 10.9 fL (7.4-10.4); Platelet Count 149 10x3/uL (130-400); RBC Distribution Width 13.2 % (11.5-14.5); Red Blood Cell (RBC) Count 4.92 mill/uL (4.20-5.40); White Blood Cell (WBC) Count 14.8 10x3/uL (4.8-10.8)
[2023-06-04 06:14] LABS: Anion Gap 15 mmol/L (10-20); BUN (Urea Nitrogen) 34 mg/dL (9.8-20.1); Calc. Creatinine Clearance 52 mL/min (70-130); Calcium 9.3 mg/dL (7.8-10.44); Carbon Dioxide 30 mmol/L (23-31); Chloride 99 mmol/L (98-107); Estimated GFR 50; Glucose 148 mg/dL (83-110); Magnesium 2.9 mg/dL (1.6-2.6); Potassium 3.3 mmol/L (3.5-5.1); Sodium 141 mmol/L (136-145)
[2023-06-04] MEDS: Potassium Chloride 20 MEQ TAB PO SCH (09:31)
[2023-06-04] MEDS ORDERED: Electrolyte Replacement Protocol 1 EACH FS SCH (11:30)
[2023-06-04] MEDS ORDERED: Electrolyte Replacement Protocol FS PRN (12:00)
[2023-06-04] MEDS ORDERED: Lisinopril 5 MG TAB PO SCH (12:00)
[2023-06-04] MEDS: Lisinopril 5 MG TAB PO SCH (12:43)
[2023-06-04 13:03] LABS: SARS-CoV-2 N1 Negative; SARS-CoV-2 N2 Negative; SARS-CoV-2 RNAse P1 Positive; SARS-CoV-2 RNAse P2 Positive
[2023-06-04] MEDS: methylPREDNISolone Sod Succ 40 MG VIAL IVP SCH (20:45)
[2023-06-04] MEDS: Cefuroxime 250 MG TAB PO SCH (20:46)
[2023-06-04] MEDS ORDERED: methylPREDNISolone Sod Succ 40 MG VIAL IVP SCH (21:00)
[2023-06-05 06:34] LABS: #Monocytes 1.1 thou/uL (0.11-0.59); #Neutrophils 12.1 thou/uL (1.40-6.50); %Basophils 0.1 % (0.0-1.0); %Lymphocytes 12.4 % (21.0-51.0); %Monocytes 7.4 % (0.0-10.0); %Neutrophils 79.5 % (42.0-75.0); Hematocrit 44.5 % (36.0-47.0); Hemoglobin 14.5 g/dL (12.0-16.0); Mean Corpuscular HGB CONC 32.6 g/dL (32.0-36.0); Mean Corpuscular Volume 95.1 fl (78.0-98.0); Mean Platelet Volume 10.9 fL (7.4-10.4); Platelet Count 139 10x3/uL (130-400); RBC Distribution Width 13.1 % (11.5-14.5); Red Blood Cell (RBC) Count 4.68 mill/uL (4.20-5.40); White Blood Cell (WBC) Count 15.2 10x3/uL (4.8-10.8)
[2023-06-05 07:09] LABS: Anion Gap 11 mmol/L (10-20); BUN (Urea Nitrogen) 35 mg/dL (9.8-20.1); Calc. Creatinine Clearance 54 mL/min (70-130); Carbon Dioxide 30 mmol/L (23-31); Chloride 103 mmol/L (98-107); Estimated GFR 53; Glucose 123 mg/dL (83-110); Potassium 4.8 mmol/L (3.5-5.1); Sodium 139 mmol/L (136-145)
[2023-06-05] MEDS: Lisinopril 5 MG TAB PO SCH (08:37)
[2023-06-05] MEDS ORDERED: Furosemide 20 MG (2 mL) VIAL SLOW IVP SCH (09:00)
[2023-06-05] MEDS ORDERED: Lisinopril 5 MG TAB PO SCH (09:00)
[2023-06-06 06:04] LABS: #Monocytes 0.9 thou/uL (0.11-0.59); #Neutrophils 9.2 thou/uL (1.40-6.50); %Basophils 0.1 % (0.0-1.0); %Lymphocytes 15.8 % (21.0-51.0); %Monocytes 7.5 % (0.0-10.0); %Neutrophils 75.3 % (42.0-75.0); Hematocrit 43.7 % (36.0-47.0); Hemoglobin 14.4 g/dL (12.0-16.0); Mean Corpuscular Hemoglobin 31.2 pg (27.0-31.0); Mean Corpuscular Volume 94.8 fl (78.0-98.0); Mean Platelet Volume 10.6 fL (7.4-10.4); Platelet Count 149 10x3/uL (130-400); RBC Distribution Width 12.9 % (11.5-14.5); Red Blood Cell (RBC) Count 4.61 mill/uL (4.20-5.40); White Blood Cell (WBC) Count 12.2 10x3/uL (4.8-10.8)
[2023-06-06 06:31] LABS: Anion Gap 10 mmol/L (10-20); BUN (Urea Nitrogen) 29 mg/dL (9.8-20.1); Calc. Creatinine Clearance 61 mL/min (70-130); Calcium 8.8 mg/dL (7.8-10.44); Carbon Dioxide 29 mmol/L (23-31); Chloride 102 mmol/L (98-107); Estimated GFR 62; Glucose 117 mg/dL (83-110); Potassium 4.8 mmol/L (3.5-5.1); Sodium 136 mmol/L (136-145)
[2023-06-06] MEDS: predniSONE 20 MG TAB PO SCH (08:35)
[2023-06-06] MEDS: Lisinopril 10 MG TAB PO SCH (08:35)
[2023-06-06] MEDS: FLU VACC QS2023(65UP)/MF59C/PF 60 MCG/0.5 ML SYRINGE IM ONE (08:36)
[2023-06-07 06:36] LABS: #Monocytes 1.3 thou/uL (0.11-0.59); #Neutrophils 8.9 thou/uL (1.40-6.50); %Basophils 0.3 % (0.0-1.0); %Eosinophils 0.3 % (0.0-10.0); %Lymphocytes 27.6 % (21.0-51.0); %Monocytes 8.7 % (0.0-10.0); %Neutrophils 59.9 % (42.0-75.0); Hematocrit 47.2 % (36.0-47.0); Hemoglobin 15.6 g/dL (12.0-16.0); Mean Corpuscular HGB CONC 33.1 g/dL (32.0-36.0); Mean Corpuscular Hemoglobin 31.2 pg (27.0-31.0); Mean Corpuscular Volume 94.4 fl (78.0-98.0); Mean Platelet Volume 10.3 fL (7.4-10.4); Platelet Count 169 10x3/uL (130-400); RBC Distribution Width 12.4 % (11.5-14.5); White Blood Cell (WBC) Count 14.9 10x3/uL (4.8-10.8)
[2023-06-07 06:51] LABS: Anion Gap 9 mmol/L (10-20); BUN (Urea Nitrogen) 21 mg/dL (9.8-20.1); Calc. Creatinine Clearance 61 mL/min (70-130); Calcium 8.9 mg/dL (7.8-10.44); Carbon Dioxide 32 mmol/L (23-31); Chloride 100 mmol/L (98-107); Estimated GFR 61; Glucose 99 mg/dL (83-110); Magnesium 2.5 mg/dL (1.6-2.6); Potassium 3.6 mmol/L (3.5-5.1); Sodium 137 mmol/L (136-145)
[2023-06-07] MEDS: Ondansetron PF 4 MG/2 ML Vial IVP PRN (08:06)
[2023-06-07 11:58] VITALS: BP 132/66; TEMP 98.3
== END 2023-06-07 12:50 | disposition home or self-care (01) | DRG 291 ==
LOC: ERS 15:06 → ERHOLD 15:57 → 2NO 18:47
PROVIDERS: ADMIT Internal Medicine; ATTEND Internal Medicine
DX: I11.0 Hypertensive heart disease with heart failure (principal); I50.33 Acute on chronic diastolic (congestive) heart failure; J96.01 Acute respiratory failure with hypoxia; J44.1 Chronic obstructive pulmonary disease with (acute) exacerbation; Z88.0 Allergy status to penicillin; Z88.2 Allergy status to sulfonamides; Z91.041 Radiographic dye allergy status; Z88.1 Allergy status to other antibiotic agents; I25.10 Atherosclerotic heart disease of native coronary artery without angina pectoris; E78.00 Pure hypercholesterolemia, unspecified; F17.210 Nicotine dependence, cigarettes, uncomplicated; Z79.899 Other long term (current) drug therapy; Z82.49 Family history of ischemic heart disease and other diseases of the circulatory system; E11.9 Type 2 diabetes mellitus without complications; E87.6 Hypokalemia; Z95.2 Presence of prosthetic heart valve; Z11.52 Encounter for screening for COVID-19
CPT/HCPCS: 36415; 36416; 71045; 80048; 80053; 83735; 83880; 84484; 85025; 87081; 87430; 87633; 87635; 93005; 93306; 94640; 94660; 94760; 96374; 96375; J0456; J0696; J1650; J1940; J2405; J2920; J3475; J3490; J7050; J7512; J7620; Q0162

== ENCOUNTER 2024-11-17 08:00 | Outpatient (CLI) | payer MEDICARE | END 2024-11-17 08:01 | disposition home or self-care (01) | LOC: BICMAMMO 08:00 | PROVIDERS: ATTEND Family Medicine | DX: M25.551 Pain in right hip (principal); Z78.0 Asymptomatic menopausal state | CPT/HCPCS: 77080 ==